=== PATIENT | female | born 1990 | race Caucasian/White ===

== ENCOUNTER 2019-08-30 10:34 | Emergency (ER) | payer MEDICAID ==
[~2019-08-30] VITALS: Ht 162.6 cm; Wt 85.0 kg
[~2019-08-30 10:34] MED LIST: MOTRIN600 MG PO; PERCOCET 5/3251 TA1 PO; PRENATAL COMPLE1 TAB PO; TYLENOL325 MG PO
[2019-08-30 10:52] VITALS: Ht 162.6 cm; Wt 85.0 kg
[2019-08-30 11:16] LABS: BILIRUBIN NEGATIVE (NEGATIVE); GLUCOSE NEGATIVE (NEGATIVE); KETONE NEGATIVE (NEGATIVE); NITRITE NEGATIVE (NEGATIVE); UROBILINOGEN NORMAL (NORMAL)
[2019-08-30] MEDS ORDERED: CLEOCIN HCL300 MG PO (12:06)
[2019-08-30] MEDS ORDERED: FLUTICASONE PRO16 GM NASAL (12:07)
[2019-08-30] MEDS ORDERED: TAMIFLU75 MG PO (12:14)
[2019-08-30 12:20] VITALS: BP 122/84
== END 2019-08-30 12:56 | disposition home or self-care (01) ==
LOC: D.ER 10:34
PROVIDERS: Family Medicine
DX: O26.892 Other specified pregnancy related conditions, second trimester (principal); Z3A.15 15 weeks gestation of pregnancy; J10.1 Influenza due to other identified influenza virus with other respiratory manifestations; J01.90 Acute sinusitis, unspecified

== ENCOUNTER 2020-02-16 20:19 | Inpatient (IN) | payer OTHER ==
[~2020-02-16] VITALS: Ht 315 cm; Wt 85.8 kg
[~2020-02-16 20:19] MED LIST changes: +CLEOCIN HCL300 MG PO; +FLUTICASONE PRO16 GM NASAL; +TAMIFLU75 MG PO
[2020-02-16 20:28] VITALS: BP 120/58; Ht 315 cm; Wt 85.8 kg
[2020-02-16] MEDS ORDERED: PROTONIX40 MG PO (20:28)
[2020-02-16 20:59] LABS: HEMATOCRIT 35.2 % (36.0-48.0); MCH 30.8 pg (26.0-34.0); MCHC 34.1 g/dL (31.0-37.0); MCV 90.3 fL (80.0-100.0); RBC 3.9 10x6/uL (4.00-5.40); RDW 12.6 % (11.5-14.5); WBC 10.9 10x3/uL (4.8-10.8)
[2020-02-16 21:32] LABS: UDS - AMPHET NEGATIVE QUAL (NEGATIVE); UDS - BARB NEGATIVE QUAL (NEGATIVE); UDS - BENZO NEGATIVE QUAL (NEGATIVE); UDS - COCAINE NEGATIVE QUAL (NEGATIVE); UDS - OPIATE NEGATIVE QUAL (NEGATIVE); UDS - PCP NEGATIVE QUAL (NEGATIVE); UDS - THC NEGATIVE QUAL (NEGATIVE)
--- NOTE | 2020-02-17 17:07 | NUR ---
CALLS VIA CALL LIGHT. RN TO ROOM, STANDING AT SINK WASHING HANDS, REPORTS THAT SHE VOIDED AND PERFORMED PERICARE. 700 MLS CLEAR LIGHT YELLOW URINE NOTED IN HAT. STEADY GAIT NOTED. FUNDUS FIRM, MIDLINE AND U2 WITH SCANT RUBRA LOCHIA, NO CLOTS NOTED. EVENING MEAL TRAY TAKEN FROM ROOM WITH 75% OF MEAL EATEN. DENIES PAIN AND NEEDS. BED IN LOW POSITION WITH SRUP X2. CALL LIGHT AND PHONE WITHIN REACH. SIGNIFICANT OTHER REMAINS IN ROOM ON COUCH, SUPPORTIVE OF PT NEEDS. IN NBN AT THIS TIME. WILL CONTINUE TO MONITOR.
--- NOTE | 2020-02-17 18:33 | NUR ---
C/O ABD CRAMPING 10/15, REQUESTS TORADOL AND TYLENOL PRIOR TO BF INFANT, GIVEN PER ORDER AND PT REQUEST. AMBULATORY TO ROOM 1257 FOR CONTINUED PP CARE. ORIENTED TO ROOM, CALL LIGHT, BR, SR. VERBALIZES UNDERSTANDING AND DENIES QUESTIONS. NBN NOTIFIED OF PT MOVING AND INFANT TO ROOM FOR . SIGNIFICANT OTHER REMAINS AT BEDSIDE WITH PT AND , SUPPORTIVE AND ATTENTIVE. BED IN LOW POSITION, DENIES NEEDS. SRUP X2. CALL LIGHT AND PHONE WITHIN REACH.
--- NOTE | 2020-02-17 20:33 | NUR ---
IN TO COMPLETE SHIFT ASSESSMENT, PATIENT NOT IN ROOM AT THIS TIME.
[2020-02-17 20:55] VITALS: BP 108/53
--- NOTE | 2020-02-17 20:55 | NUR ---
SHIFT ASSESSMENT COMPLETED, SEE FLOWSHEET
--- NOTE | 2020-02-17 22:00 | NUR ---
PT SLEEPING WITH EVEN RESPIRATIONS, INFANT AT BEDSIDE IN OPEN CRIB. NO DISTRESS NOTED, WILL CONTINUE TO MONITOR.
[2020-02-17 23:55] VITALS: BP 101/52
--- NOTE | 2020-02-17 23:55 | NUR ---
PT SITTING UP IN BED TO BREASTFEED . VS TAKEN, SEE FLOWSHEET. FUNDUS FIRM/ML/-1. BLEEDING SMALL,RUBRA. PAIN MEDICATION ADMINISTERED PER PT REQUEST, SEE EMAR. NO FURTHER NEEDS IDENTIFIED. WILL CONTINUE TO MONITOR.
--- NOTE | 2020-02-18 01:16 | NUR ---
PATIENT SLEEPING WITH EYES CLOSED, RESPIRATIONS EVEN AND NON LABORED. NO NEEDS IDENTIFIED.
--- NOTE | 2020-02-18 03:28 | NUR ---
PT SLEEPING, PT AWOKE UPON MY ENTERING THE ROOM. DENIES NEEDS AT THIS TIME, WILL CONTINUE TO MONITOR.
--- NOTE | 2020-02-18 06:15 | NUR ---
patient sitting up in bed holding infant. no needs identified. will continue to monitor.
[2020-02-18 07:07] LABS: HEMATOCRIT 30.2 % (36.0-48.0); HEMOGLOBIN 10.3 g/dL (12-16); MCH 30.4 pg (26.0-34.0); MCHC 34.1 g/dL (31.0-37.0); MCV 89.1 fL (80.0-100.0); MEAN PLATELET VOLUME 10.3 fL (7.4-10.4); RBC 3.39 10x6/uL (4.00-5.40); RDW 12.4 % (11.5-14.5); WBC 9.2 10x3/uL (4.8-10.8)
--- NOTE | 2020-02-18 07:09 | NUR ---
PT RESTING WITH EYES CLOSED. RESP REGULAR AND UNLABORED, NO S/S OF DISTRESS NOTED. BED IN LOW POSIITON WITH SRUP X2. CALL LIGHT AND PHONE WITHIN REACH. SIGNIFICANT OTHER RESTING QUIETLY ON COUCH AT BEDSIDE. WILL CONTINUE TO MONITOR.
[2020-02-18 07:15] LABS: RAPID PLASMA REAGIN Non Reactive (Non Reactive)
[2020-02-18 07:48] VITALS: BP 110/61
--- NOTE | 2020-02-18 07:48 | NUR ---
SHIFT ASSESSMENT COMPLETED PER FLOWSHEET. VSS. FUNDUS FIRM MIDLINE AND U2 WITH SMALL AMT RUBRA LOCHIA, NO CLOTS NOTED. POC DISCUSSED WITH PT, VERBALIZES UNDERSTANDING AND DENIES QUESTIONS. REPORTS THAT SHE IS VOIDING AND PASSING FLATUS WITHOUT DIFFICULTY. RESTING QUIETLY IN OPEN CRIB AT BEDSIDE. DENIES PAIN. ICE WATER PROVIDED PER REQUEST. WILL CONTINUE TO MONITOR. BED IN LOW POSITION WITH SRUP X2. CALL LIGHT AND PHONE WITHIN REACH.
--- NOTE | 2020-02-18 09:27 | NUR ---
RN TO BEDSIDE FOR ROUNDS. LAYING ON R SIDE, RESTING WITH EYES CLOSED. RESP REGULAR AND UNLABORED, NO S/S OF DISTRESS NOTED. RESTING QUIETLY IN OPEN CRIB AT BEDSIDE. BED IN LOW POSITION WITH SRUP X2. CALL LIGHT AND PHONE WITHIN REACH. WILL CONTINUE MONITOR.
--- NOTE | 2020-02-18 10:17 | NUR ---
PT CALLS RN TO ROOM WITH QUESTIONS REGARDING . EDUCATED ON AND HOW TO TELL IF IS GETTING ENOUGH INTAKE, VERBALIZES UNDERSTANDING AND DENIES QUESTIONS. DENIES PAIN AND NEEDS. WILL CONTINUE TO MONITOR.
--- NOTE | 2020-02-18 11:54 | NUR ---
BONDING WITH INFANT. DENIES PAIN AND NEEDS AT THIS TIME. SIGNIFICANT REMAINS AT BEDSIDE, SUPPORTIVE AND ATTENTIVE TO PT AND NEEDS. BED IN LOW POSITION WITH SRUP X2. CALL LIGHT AND PHONE WITHIN REACH. WILL CONTINUE TO MONITOR.
--- NOTE | 2020-02-18 13:24 | NUR ---
LAYING ON L SIDE, RESTING WITH EYES CLOSED, RESP REGULAR AND UNLABORED, NO S/S OF DISTRESS NOTED. WILL CONTINUE TO MONITOR. BED IN LOW POSITION WITH SRUP X2. CALL LIGHT AND PHONE WITHIN REACH. WILL CONTINUE TO MONITOR.
--- NOTE | 2020-02-18 15:02 | NUR ---
ROUNDS MADE. PT REPORTS THAT IS IN NBN HAVING CIRC DONE. DENIES PAIN AND NEEDS. SITTING UP IN CHAIR, DRESSED. CALL LIGHT PLACED WITHIN REACH.
--- NOTE | 2020-02-18 16:27 | NUR ---
VERBAL AND WRITTEN D/C INSTRUCTIONS PROVIDED TO PT AND SIGNIFICANT OTHER, BOTH VERBALIZE UNDERSTANDING AND DENY QUESTIONS. COPIES OF [facility] PP CARE INSTRUCTIONS, [employer] HANDOUT, AND S[employer] YOUR LIFE HANDOUT PROVIDED TO PT. PT DRESSING INFANT FOLLOWING D/C TEACHING. DENIES QUESTION AND NEEDS.
--- NOTE | 2020-02-18 17:20 | NUR ---
Danica ZAZUETA RN NBN REPORTS THAT IS NOW D/C'D. PT OFF UNIT VIA W/C WITH IN CARSEAT IN LAP TO AWAITING VECHILE.
== END 2020-02-18 17:20 | disposition home or self-care (01) | DRG 807 ==
LOC: D.LD 20:19
PROVIDERS: ADMIT Obstetrics & Gynecology; ATTEND Obstetrics & Gynecology
PROC: 10907ZC Drainage of Amniotic Fluid, Therapeutic from Products of Conception, Via Natural or Artificial Opening (ICD-10-PCS; principal; 2020-02-17)
PROC: 10D07Z6 Extraction of Products of Conception, Vacuum, Via Natural or Artificial Opening (ICD-10-PCS; 2020-02-17)
PROC: 3E033VJ Introduction of Other Hormone into Peripheral Vein, Percutaneous Approach (ICD-10-PCS; 2020-02-17)
PROC: 0W8NXZZ Division of Female Perineum, External Approach (ICD-10-PCS; 2020-02-17)
DX: O36.8330 Maternal care for abnormalities of the fetal heart rate or rhythm, third trimester, not applicable or unspecified (principal); Z37.0 Single live birth; Z3A.39 39 weeks gestation of pregnancy